=== PATIENT | female | born 1960 | race Caucasian/White ===

== ENCOUNTER 2022-05-02 13:45 | Emergency (ER) | payer BC ==
[2022-05-02] MEDS ORDERED: Sodium Chloride 0.9% 10 ML Syringe FLUSH PRN (14:09)
[2022-05-02] MEDS ORDERED: Heparin Sodium 5,000 Units/ML Vial IVPUSH ONE (14:49)
[2022-05-02] MEDS ORDERED: Heparin Sodium/0.45% NaCl 500 ML IV SCH ×2 (15:00→15:30)
[2022-05-02] MEDS ORDERED: Magnesium Sulfate/Water 2 GM in Premix Bag 1 BAG IV ONE (15:04)
== END 2022-05-02 16:55 ==
LOC: LL.ED 13:45
DX: I25.9 Chronic ischemic heart disease, unspecified (principal); E83.42 Hypomagnesemia; R77.8 Other specified abnormalities of plasma proteins; I10 Essential (primary) hypertension; E78.5 Hyperlipidemia, unspecified; K21.9 Gastro-esophageal reflux disease without esophagitis; F17.210 Nicotine dependence, cigarettes, uncomplicated; E66.9 Obesity, unspecified; Z88.5 Allergy status to narcotic agent; Z88.8 Allergy status to other drugs, medicaments and biological substances; Z79.899 Other long term (current) drug therapy; Z68.33 Body mass index [BMI] 33.0-33.9, adult
CPT/HCPCS: 36415; 83605; 83735; 83880; 84484; 85610; 93005; 93010; 96365; 96368; 96376; 99284; 99285-25; J1644; J3475

== ENCOUNTER 2024-07-31 15:23 | Emergency (ER) | payer BC, MEDICARE, OTHER ==
[2024-07-31] MEDS ORDERED: Aspirin 81 MG Tab.Chew PO ONE (15:41)
[2024-07-31 16:00] LABS: BASOPHILS ABSOLUTE AUTO 0.05 K/uL (0.00-0.20); BASOPHILS PERCENT AUTO 0.6 % (0.0-2.0); EOSINOPHILS ABSOLUTE AUTO 0.28 K/uL (0.00-0.50); EOSINOPHILS PERCENT AUTO 3.2 % (0.0-5.0); HEMATOCRIT 46.8 % (34.0-46.0); HEMOGLOBIN 16.1 g/dL (11.7-15.5); IMMATURE GRAN ABSOLUTE AUTO 0.01 10^3/uL (0.00-0.04); IMMATURE GRAN PERCENT AUTO 0.1 % (0.0-0.4); LYMPHOCYTES ABSOLUTE AUTO 4.26 K/uL (0.50-3.50); LYMPHOCYTES PERCENT AUTO 48.4 % (10.0-50.0); MEAN CORPUSCULAR HEMOGLOBIN 32.5 pg (28.2-33.3); MEAN CORPUSCULAR HGB CONC 34.4 g/dL (31.7-36.0); MEAN CORPUSCULAR VOLUME 94.5 fL (84.0-98.0); MONOCYTES ABSOLUTE AUTO 0.68 K/uL (0.00-1.00); MONOCYTES PERCENT AUTO 7.7 % (2.0-14.0); NEUTROPHILS ABSOLUTE AUTO 3.52 K/uL (1.40-7.00); PLATELET COUNT,PLT 207 K/uL (150-350); RED BLOOD CELL COUNT 4.95 M/uL (3.77-5.09); RED CELL DISTRIBUTION WIDTH 12.2 % (11.2-14.1); WHITE BLOOD CELL COUNT,WBC 8.8 K/uL (4.0-10.2)
[2024-07-31 16:16] LABS: PROTHROMBIN TIME 10.1 SEC (9.0-11.1)
[2024-07-31 16:26] LABS: ALANINE AMINOTRANSFERASE,ALT 64 U/L (12-78); ALKALINE PHOSPHATASE 67 IU/L (46-116); ANION GAP 12.2 meq/L (7-15); ASPARTATE AMNIOTRANSFERASE,AST 75 U/L (15-37); BILIRUBIN TOTAL 0.4 mg/dL (0.2-1.0); BLOOD UREA NITROGEN,BUN 17 mg/dL (7-18); CALCIUM 9.6 mg/dL (8.5-10.1); CHLORIDE,CL 105 mmol/L (98-107); CREATININE 1.03 mg/dL (0.51-1.17); ESTIMATED GFR 60 mL/min (>=60); GLUCOSE RANDOM 109 mg/dL (70-99); LIPASE 59 U/L (16-77); MAGNESIUM 1.5 mg/dL (1.8-2.4); POTASSIUM,K 5.2 mmol/L (3.5-5.1); PROTEIN TOTAL,TP 7.4 g/dL (6.4-8.2); SODIUM,NA 143 mmol/L (136-145)
== END 2024-07-31 17:52 | disposition home or self-care (01) ==
LOC: LL.ED 15:23
DX: K21.9 Gastro-esophageal reflux disease without esophagitis (principal); F41.9 Anxiety disorder, unspecified; I10 Essential (primary) hypertension; E78.00 Pure hypercholesterolemia, unspecified; I25.2 Old myocardial infarction; E66.9 Obesity, unspecified; F17.210 Nicotine dependence, cigarettes, uncomplicated; Z79.1 Long term (current) use of non-steroidal anti-inflammatories (NSAID); Z79.899 Other long term (current) drug therapy; Z79.82 Long term (current) use of aspirin; Z79.85 Long-term (current) use of injectable non-insulin antidiabetic drugs; Z88.6 Allergy status to analgesic agent; Z88.8 Allergy status to other drugs, medicaments and biological substances
CPT/HCPCS: 36415; 71046; 80053; 83690; 83735; 84484; 85025; 85610; 93005; 99285